=== PATIENT | female | born 1965 | race Caucasian/White ===

== ENCOUNTER → 2017-04-23 | Outpatient (CLI) | payer OTHER ==
[~2017-04-23] MED LIST: ISOVUE-370 76% 100ML VIAL (Q9967) As Ordered
== END ==
LOC: M RAD 17:49
DX: R22.0 Localized swelling, mass and lump, head (principal); D48.5 Neoplasm of uncertain behavior of skin
CPT/HCPCS: Q9967

== ENCOUNTER → 2017-11-25 | Outpatient (REF) | payer OTHER | LOC: M LAB REF 19:28 | DX: J02.9 Acute pharyngitis, unspecified (principal) ==

== ENCOUNTER → 2018-12-17 | Outpatient (CLI) | payer OTHER ==
--- NOTE | 2018-12-18 11:53 | REP ---
Left hand four views : There is no fracture or dislocation. Mineralization and joint spaces are normal. There are no calcifications or foreign bodies. Impression: Negative left hand . Electronically Signed by Ba Pena MD 12/17/2018 04:46 P
== END ==
LOC: M WUC 16:31
PROVIDERS: ATTEND Physician Assistant
DX: S60.222A Contusion of left hand, initial encounter (principal); W18.30XA Fall on same level, unspecified, initial encounter; Y92.009 Unspecified place in unspecified non-institutional (private) residence as the place of occurrence of the external cause

== ENCOUNTER → 2019-04-21 | Outpatient (REF) | payer OTHER ==
[2019-04-24 00:08] LABS: Lyme Disease IgG/IgM Antibodie <0.91 ISR (0.00-0.90); Lyme Disease IgM Ab Quantitati <0.80 index (0.00-0.79)
== END ==
LOC: M LAB REF 12:48
PROVIDERS: ATTEND Internal Medicine
DX: Z11.59 Encounter for screening for other viral diseases (principal)

== ENCOUNTER → 2019-06-09 | Outpatient (CLI) | payer OTHER | LOC: M LABSMTC 11:45 | PROVIDERS: ATTEND Family Medicine | DX: Z11.59 Encounter for screening for other viral diseases (principal); Z20.828 Contact with and (suspected) exposure to other viral communicable diseases ==

== ENCOUNTER → 2019-07-27 | Outpatient (CLI) | payer OTHER ==
--- NOTE | 2019-07-28 04:36 | REP ---
Clinical: Symptoms related to atherosclerotic disease and intermittent claudication. Technique: Real time bugrer scale and color Doppler evaluation of the bilateral lower extremity arterial vasculature using linear high frequency transducer. Findings: Burger scale and color images demonstrate mild to moderate amounts of atheromatous plaquing without narrowing or focal stenosis/occlusion identified. Doppler interrogation demonstrates normal triphasic arterial wave forms and velocities bilaterally. Peak systolic velocities (cm/sec) RIGHT LEFT ARACELI 1.2 1.0 Common femoral artery 123 91 Profunda femoris 56 53 SFA (proximal) 62 71 SFA (mid) 61 63 SFA (distal) 58 63 Popliteal artery 45 46 ADALBERTO (prox.) 64 41 Tibioperoneal trunk 73 69 SLAB GRINDER (prox.) 42 38 SLAB GRINDER (distal) 50 56 ADALBERTO (distal) 45 37 Impression: Mild atheromatous changes with areas of narrowing but no obvious focal occlusion or stenosis. Electronically Signed by Adria Lew MD 07/28/2019 04:27 A
== END ==
LOC: M RAD 09:25
PROVIDERS: ATTEND Physician Assistant
DX: R09.89 Other specified symptoms and signs involving the circulatory and respiratory systems (principal); I70.203 Unspecified atherosclerosis of native arteries of extremities, bilateral legs

== ENCOUNTER → 2019-07-28 | Outpatient (CLI) | payer OTHER ==
--- NOTE | 2019-07-29 04:38 | REP ---
Clinical: Lower extremity pain and symptoms related to insufficiency. Technique: Real time miller scale and color Doppler evaluation using linear high frequency transducer with reflux evaluation. Findings: Bilateral lower extremities demonstrate normal compressibility, flow, and wave patterns and response respiration and augmentation without evidence for deep venous thrombosis. Reflux evaluation of the right lower extremity demonstrates only minimal reflux through the common femoral vein. Reflux evaluation of the left lower extremity demonstrates mild reflux through the mid to distal greater saphenous vein measuring 4 mm diameter with a 8.5 second reflux duration at the level of the thigh and 3 mm diameter with a 8.5 second reflux duration at the level of the knee. Mild reflux is also identified through the mid superficial femoral vein, and findings are more pronounced in Trendelenburg position. Impression: 1. No evidence for deep venous thrombosis. 2. Minimal reflux as described above. Electronically Signed by Adria Lew MD 07/29/2019 04:30 A
== END ==
LOC: M RAD 09:25
PROVIDERS: ATTEND Physician Assistant
DX: R09.89 Other specified symptoms and signs involving the circulatory and respiratory systems (principal)

== ENCOUNTER → 2019-08-09 | Outpatient (CLI) | payer OTHER ==
[2019-08-09 16:23] LABS: BLOOD UREA NITROGEN 18 MG/DL (7-18); CALCIUM LEVEL 8.8 MG/DL (8.5-10.1); CARBON DIOXIDE LEVEL 28 MEQ/L (21-32); CHLORIDE LEVEL 104 MEQ/L (98-107); CREATININE FOR GFR 0.86 MG/DL (0.55-1.30); GLOMERULAR FILTRATION RATE > 60.0 (>51); GLUCOSE, FASTING 96 MG/DL (70-100); POTASSIUM SERUM 3.8 MEQ/L (3.5-5.1); SODIUM LEVEL 139 MEQ/L (136-145)
== END ==
LOC: M WUC 14:20
PROVIDERS: ATTEND Physician Assistant
DX: R06.09 Other forms of dyspnea (principal)

== ENCOUNTER 2019-10-23 20:15 | Emergency (ER) | payer OTHER ==
[2019-10-23] MEDS ORDERED: LIDOCAINE 1% MDV 20ML VIAL As Ordered ONE (22:46)
[2019-10-23] MEDS ORDERED: LIDOCAINE 1% MDV 20ML VIAL ONE (22:46)
[2019-10-23] MEDS ORDERED: BOOSTRIX/ADACEL VACCINE (DIPHTH/PERTUSS/ACELL/TETANUS) 0.5ML SYR ONE (22:46)
[2019-10-23] MEDS ORDERED: BOOSTRIX/ADACEL VACCINE (DIPHTH/PERTUSS/ACELL/TETANUS) 0.5ML SYR As Ordered ONE (23:48)
== END 2019-10-23 23:45 | disposition home or self-care (01) ==
LOC: M ED 20:15
DX: S61.411A Laceration without foreign body of right hand, initial encounter (principal); W26.8XXA Contact with other sharp object(s), not elsewhere classified, initial encounter; Y93.K1 Activity, walking an animal; Y92.9 Unspecified place or not applicable; Z88.1 Allergy status to other antibiotic agents; Z79.899 Other long term (current) drug therapy

== ENCOUNTER → 2020-05-26 | Outpatient (CLI) | payer OTHER ==
--- NOTE | 2020-05-27 03:09 | REP ---
INDICATION: CHRONIC COUGH COMPARISON: None. TECHNIQUE: PA and lateral. FINDINGS: The mediastinum and cardiac silhouette are normal. The lung sloan are clear and without acute consolidation, effusion, or pneumothorax. The skeletal structures are intact and normal. IMPRESSION: No acute cardiopulmonary process. <Electronically signed by Adria Lew > 05/27/20 030
== END ==
LOC: M WUC 15:42
PROVIDERS: ATTEND Internal Medicine
DX: R05 Cough (principal)

== ENCOUNTER → 2020-08-04 | Outpatient (CLI) | payer OTHER ==
--- NOTE | 2020-08-04 13:48 | REP ---
INDICATION: PAIN COMPARISON: None. TECHNIQUE: AP, lateral, bilateral oblique views. FINDINGS: Lateral soft tissue swelling. No acute fracture or dislocation. Ankle mortise intact. IMPRESSION: Lateral swelling. No fracture. <Electronically signed by Adria Lew > 08/04/20 1417
== END ==
LOC: M WUC 13:23
PROVIDERS: ATTEND Physician Assistant
DX: M25.571 Pain in right ankle and joints of right foot (principal); M79.89 Other specified soft tissue disorders

== ENCOUNTER → 2020-08-30 | Outpatient (CLI) | payer OTHER ==
[~2020-08-30] MED LIST changes: -ISOVUE-370 76% 100ML VIAL (Q9967) As Ordered; +METHACHOLINE KIT (J7674) INH ONE
--- NOTE | 2020-08-30 16:24 | PFTRPT ---
Site: [facility], [address] [place], [place], [address] ID: [id number] Name: MARIA D OAKLEY Visit Date: 08/30/2020 Second ID: [id number] Referring Doctor: Agata Rivas Reviewing Doctor: Gurpreet St MD Hoof Trimmer: Jalen CUMMINGS RRT Age: 55 : 1965 Sex: Female Race: Height: 66.00 Inches Weight: 120.00 Lbs BSA: 1.61 Order IDs: [id number] Requested Test(s): <RESP-PFT.METH CHAL> Diagnosis: R05 of albuterol for post bronchodilator. Review Status: Not Reviewed Pre-Bronch Post-Bronch Pred Actual %Pred Actual %Chng SPIROMETRY FVC (L) 3.71 3.89 104 3.79 -2 FEV1 (L) 2.91 3.00 103 2.88 -4 FEV1/FVC (%) 79 77 97 76 -1 FEF 25% (L/sec) 5.35 5.78 108 5.83 FEF 50% (L/sec) 3.82 3.71 97 3.41 -8 FEF 75% (L/sec) 1.36 0.92 67 0.68 -26 FEF 25-75% (L/sec) 2.74 2.61 95 2.19 -16 FEF Max (L/sec) 6.92 6.08 87 5.92 -2 FIVC (L) 3.50 3.72 6 FIF 50% (L/sec) 3.43 2.65 77 2.65 FIF Max (L/sec) 2.90 2.98 2 Expiratory Time (sec) 6.78 6.48 -4 Back Extrap Vol (L) 0.09 0.11 24 Time To FEFmax (sec) 0.090 0.127 42
== END ==
LOC: M CARPUL 15:18
PROVIDERS: ATTEND Nurse Practitioner Adult Health
DX: R05 Cough (principal)
CPT/HCPCS: 94070; J7674

== ENCOUNTER → 2021-01-27 | Outpatient (CLI) | payer OTHER ==
[~2021-01-27] MED LIST changes: -METHACHOLINE KIT (J7674) INH ONE; +PROHANCE 279.3MG/ML 5ML VIAL As Ordered ONE
--- NOTE | 2021-01-28 22:08 | REPVR ---
PROCEDURE INFORMATION: Exam: MR Head Without and With Contrast Exam date and time: 01/27/2021 6:09 PM Age: 55 years old Clinical indication: Weakness, extremity; Right; Additional info: Muscle weakness TECHNIQUE: Imaging protocol: MR of the head without and with intravenous contrast. Contrast material: PROHANCE; Contrast volume: 10 ml; Contrast route: INTRAVENOUS (IV); COMPARISON: CT Head with contrast 04/23/2017 6:12 PM FINDINGS: Brain: Few mild scattered nonspecific T2/FLAIR hyperintensities of the periventricular and deep subcortical white matter, most likely secondary to chronic small vessel ischemic change. No intracranial hemorrhage or extra-axial fluid collection. No evidence of mass effect or midline shift. No restricted diffusion to suggest acute infarct. Cerebral ventricles: No ventriculomegaly. Bones/joints: Unremarkable. Paranasal sinuses: Small air-fluid level in the right maxillary sinus. Mastoid air cells: No mastoid effusion. Orbital cavity: Unremarkable. Soft tissues: Unremarkable. IMPRESSION: 1. No acute intracranial pathology. 2. Small air-fluid level in the right maxillary sinus. 3. Chronic findings, as above. Electronically signed by: Robby Donald On 01/28/2021 22:08:04 PM
--- NOTE | 2021-01-29 00:38 | REPVR ---
PROCEDURE INFORMATION: Exam: MRA Head Without Contrast; Arteriography Exam date and time: 01/27/2021 6:08 PM Age: 55 years old Clinical indication: Weakness; Additional info: Muscle weakness TECHNIQUE: Imaging protocol: Magnetic resonance angiography head without contrast. Exam focused on the arteries. COMPARISON: CT Head with contrast 04/23/2017 6:12 PM FINDINGS: ANTERIOR CIRCULATION: Right internal carotid artery: Intracranial segment is patent with no significant stenosis. No aneurysm. Right middle cerebral artery: No occlusion or significant stenosis. No aneurysm. Right anterior cerebral artery: Hypoplastic right A1. Right ALYCE is otherwise patent. Approximately 2.2 mm saccular aneurysm projecting anteriorly from the mid ascending right A2 branch. Left internal carotid artery: Intracranial segment is patent with no significant stenosis. No aneurysm. Left middle cerebral artery: No occlusion or significant stenosis. No aneurysm. Left anterior cerebral artery: No occlusion or significant stenosis. No aneurysm. POSTERIOR CIRCULATION: Right vertebral artery: No occlusion or significant stenosis. No aneurysm. Left vertebral artery: No occlusion or significant stenosis. No aneurysm. Basilar artery: No occlusion or significant stenosis. No aneurysm. Right posterior cerebral artery: No occlusion or significant stenosis. No aneurysm. Left posterior cerebral artery: No occlusion or significant stenosis. No aneurysm. IMPRESSION: 1. No MRA evidence of intracranial arterial occlusion or significant stenosis. 2. Approximately 2.2 mm saccular aneurysm projecting anteriorly from the mid ascending right A2 branch. Recommend neurosurgery consultation. Electronically signed by: Robby Donald On 01/29/2021 00:37:35 AM
== END ==
LOC: M RAD 16:56
PROVIDERS: ATTEND Internal Medicine
DX: M62.421 Contracture of muscle, right upper arm (principal); M62.81 Muscle weakness (generalized); I67.1 Cerebral aneurysm, nonruptured
CPT/HCPCS: 70544; 70553; A9576

== ENCOUNTER → 2021-01-30 | Outpatient (CLI) | payer OTHER ==
--- NOTE | 2021-01-30 21:50 | REPVR ---
PROCEDURE INFORMATION: Exam: MR Cervical Spine Without Contrast Exam date and time: 01/30/2021 6:26 PM Age: 55 years old Clinical indication: Weakness; Additional info: Acute onset RT hand weakness TECHNIQUE: Imaging protocol: Multiplanar magnetic resonance images of the cervical spine without contrast. COMPARISON: CT Neck with contrast 04/23/2017 6:12 PM FINDINGS: Cervical vertebral body heights are intact. The dens is intact. No abnormal marrow signal. No cord compression, expansion, or abnormal cord signal. Visualized structures of the posterior fossa are unremarkable. Soft tissues are unremarkable. C2-C3: No significant canal or foraminal narrowing. C3-C4: No significant canal or foraminal narrowing. C4-C5: No significant canal or foraminal narrowing. C5-C6: Posterior disc protrusion and uncovertebral spurring cause mild canal narrowing and [id number] bilateral foraminal narrowing. C6-C7: Uncovertebral spurring causes mild bilateral foraminal narrowing. No significant canal narrowing. C7-T1: No significant canal or foraminal narrowing. IMPRESSION: 1. No acute findings in the cervical spine. 2. Mild spondylotic changes of the cervical spine, as detailed above Electronically signed by: Robby Donald On 01/30/2021 21:50:31 PM
--- NOTE | 2021-01-30 21:51 | REPVR ---
PROCEDURE INFORMATION: Exam: MRA Neck Without and With Contrast Exam date and time: 01/30/2021 6:26 PM Age: 55 years old Clinical indication: Weakness; Additional info: Acute onset RT hand weakness TECHNIQUE: Imaging protocol: Magnetic resonance angiography of the neck without and with contrast. Contrast material: PROHANCE; Contrast volume: 10 ml; Contrast route: INTRAVENOUS (IV); COMPARISON: CT Neck with contrast 04/23/2017 6:12 PM FINDINGS: Right common carotid artery: No stenosis. No dissection or occlusion. Right internal carotid artery: No stenosis of the extracranial segment. No dissection or occlusion. Right external carotid artery: No stenosis. No dissection or occlusion of the origin. Right vertebral artery: No stenosis. No dissection or occlusion. Left common carotid artery: No stenosis. No dissection or occlusion. Left internal carotid artery: No stenosis of the extracranial segment. No dissection or occlusion. Left external carotid artery: No stenosis. No dissection or occlusion of the origin. Left vertebral artery: No stenosis. No dissection or occlusion. IMPRESSION: No MRA evidence of occlusion or significant stenosis in the arteries of the neck. REFERENCES: NASCET CRITERIA. The degree of internal carotid artery stenosis is based on NASCET criteria. Normal is no stenosis. Mild is less than 50% stenosis. Moderate is 50-69% stenosis. Severe is 70% to 99% stenosis. Total occlusion is no detectable patent lumen. Electronically signed by: Robby Donald On 01/30/2021 21:51:29 PM
== END ==
LOC: M RAD 16:49
PROVIDERS: ATTEND Internal Medicine
DX: M62.421 Contracture of muscle, right upper arm (principal); M62.81 Muscle weakness (generalized)
CPT/HCPCS: 70549; 72141; A9576

== ENCOUNTER → 2021-03-27 | Outpatient (CLI) | payer OTHER ==
[2021-03-27 15:50] LABS: RHEUMATOID FACTOR QUANT < 10.0 IU/ML (<15.0); TOTAL PROTEIN 7.7 GM/DL (6.4-8.2)
[2021-03-27 16:00] LABS: VITAMIN B12 LEVEL 575 PG/ML
[2021-03-28 13:04] LABS: ALBUMIN 4.25 GM/DL (3.29-5.55); ALBUMIN % 55.2 % (55.8-66.1); ALPHA-1-GLOBULIN % 6.1 % (2.9-4.9); ALPHA-2-GLOBULINS % 12.4 % (7.1-11.8); BETA-1-GLOBULINS % 6.2 % (4.7-7.2); BETA-2-GLOBULINS % 5.3 % (3.2-6.5); GAMMA GLOBULIN % 14.8 % (11.1-18.8)
[2021-03-28 13:05] LABS: ALPHA-1-GLOBULINS 0.47 GM/DL (0.17-0.41); ALPHA-2-GLOBULINS 0.95 GM/DL (0.42-0.99); BETA-1-GLOBULINS 0.48 GM/DL (0.28-0.60); BETA-2-GLOBULINS 0.41 GM/DL (0.19-0.55); GAMMA GLOBULINS 1.14 GM/DL (0.65-1.58)
== END ==
LOC: M PLALAB 13:50
PROVIDERS: ATTEND Psychiatry & Neurology Neurology
DX: G43.909 Migraine, unspecified, not intractable, without status migrainosus (principal); Z86.73 Personal history of transient ischemic attack (TIA), and cerebral infarction without residual deficits

== ENCOUNTER → 2021-05-08 | Outpatient (CLI) | payer OTHER | LOC: M PLALAB 13:27 | PROVIDERS: ATTEND Psychiatry & Neurology Neurology | DX: I69.331 Monoplegia of upper limb following cerebral infarction affecting right dominant side (principal) ==

== ENCOUNTER → 2021-06-19 | Outpatient (CLI) | payer OTHER | LOC: M CARPUL 11:16 | PROVIDERS: ATTEND Internal Medicine | DX: M62.81 Muscle weakness (generalized) (principal); R00.1 Bradycardia, unspecified ==

== ENCOUNTER → 2021-09-05 | Outpatient (REF) | payer OTHER | LOC: M LAB REF 16:36 | PROVIDERS: ATTEND Internal Medicine | DX: R53.83 Other fatigue (principal); G72.9 Myopathy, unspecified ==

== ENCOUNTER → 2022-01-08 | Outpatient (REF) | payer OTHER | LOC: M SFHCDERM 18:05 | PROVIDERS: ATTEND Nurse Practitioner Family | DX: R21 Rash and other nonspecific skin eruption (principal) ==

== ENCOUNTER → 2023-07-11 | Outpatient (CLI) | payer OTHER | LOC: M WHC 14:37 | PROVIDERS: ATTEND Internal Medicine | DX: Z12.31 Encounter for screening mammogram for malignant neoplasm of breast (principal); R92.343 Mammographic extreme density, bilateral breasts ==

== ENCOUNTER → 2023-07-19 | Outpatient (CLI) | payer OTHER | LOC: M WUC 15:18 | PROVIDERS: ATTEND Internal Medicine | DX: M25.511 Pain in right shoulder (principal); M79.661 Pain in right lower leg; M25.571 Pain in right ankle and joints of right foot; R22.9 Localized swelling, mass and lump, unspecified ==

== ENCOUNTER → 2023-09-24 | Outpatient (CLI) | payer OTHER | LOC: M RAD 11:49 | PROVIDERS: ATTEND Internal Medicine | DX: M79.605 Pain in left leg (principal) ==

== ENCOUNTER → 2023-10-16 | Outpatient (CLI) | payer OTHER | LOC: M RAD 11:59 | PROVIDERS: ATTEND Internal Medicine | DX: M79.89 Other specified soft tissue disorders (principal) ==

== ENCOUNTER → 2023-10-17 | Outpatient (CLI) | payer OTHER | LOC: M WUC 14:52 | PROVIDERS: ATTEND Student in an Organized Health Care Education/Training Program | DX: R07.1 Chest pain on breathing (principal) ==

== ENCOUNTER → 2024-03-10 | Outpatient (CLI) | payer OTHER | LOC: M WHC 11:23 | PROVIDERS: ATTEND Obstetrics & Gynecology | DX: N63.12 Unspecified lump in the right breast, upper inner quadrant (principal) | CPT/HCPCS: 76642; 77065; G0279 ==

== ENCOUNTER → 2024-04-02 | Outpatient (REF) | payer OTHER ==
[2024-04-02 19:00] LABS: C REACTIVE PROTEIN QUANTITATIV < 0.50 MG/DL (<1.0)
[2024-04-02 19:02] LABS: RHEUMATOID FACTOR QUANT 5.2 IU/ML (<14)
[2024-04-02 19:24] LABS: IMMUNOGLOBULIN A 182.2 MG/DL (40-350)
[2024-04-03 11:34] LABS: IRON (FE) 51 UG/DL (50-170); PERCENT SATURATION 13.7 % (13.2-45.0); TOTAL IRON BINDING CAPACITY 371 UG/DL (250-425)
[2024-04-07 04:23] LABS: TISSUE TRANSGLUTAMINASE IgA < 1.0 U/mL (<15.0)
[2024-04-07 07:28] LABS: ANA SCREEN, IFA NEGATIVE (NEGATIVE)
[2024-04-07 21:53] LABS: CYCLIC CITRULLINATED PEPTIDE < 16 UNITS (<20)
== END ==
LOC: M LAB REF 16:22
PROVIDERS: ATTEND Internal Medicine
DX: M13.0 Polyarthritis, unspecified (principal); G62.9 Polyneuropathy, unspecified; D64.9 Anemia, unspecified

== ENCOUNTER → 2024-07-22 | Outpatient (CLI) | payer OTHER | LOC: M WHC 13:51 | PROVIDERS: ATTEND Obstetrics & Gynecology | DX: N63.12 Unspecified lump in the right breast, upper inner quadrant (principal); N64.4 Mastodynia | CPT/HCPCS: 76642; 77066; G0279 ==

== ENCOUNTER → 2024-07-22 | Outpatient (CLI) | payer OTHER | LOC: M RAD 11:53 | PROVIDERS: ATTEND Physician Assistant | DX: I87.8 Other specified disorders of veins (principal) ==

== ENCOUNTER → 2024-10-19 | Outpatient (REF) | payer OTHER ==
[2024-10-19 15:42] LABS: C REACTIVE PROTEIN QUANTITATIV < 0.50 MG/DL (<1.0)
== END ==
LOC: M LAB REF 14:27
PROVIDERS: ATTEND Internal Medicine
DX: M06.4 Inflammatory polyarthropathy (principal); G62.9 Polyneuropathy, unspecified